=== PATIENT | female | born 1960 | race Caucasian/White ===

== ENCOUNTER 2017-05-12 23:23 | Inpatient (IN) | payer MEDICAID ==
[2017-05-12] MEDS ORDERED: Sodium Chloride 0.9% 10 ML Syringe FLUSH PRN (23:30)
[2017-05-12] MEDS ORDERED: Lactated Ringers 1,000 ML IV ONE (23:31)
--- NOTE | 2017-05-12 23:32 | EDM.PDOC ---
ED HPI GENERAL MEDICAL PROBLEM - General Chief Complaint: General Stated Complaint: pain, multiple complaints Time Seen by Provider: 05/12/17 23:25 Source of Information: Reports: Patient, RN, RN Notes Reviewed History Limitations: Reports: No Limitations - History of Present Illness INITIAL COMMENTS - FREE TEXT/NARRATIVE: Patient presents to the ED at [facility] with multiple complaints. Patient states she has generalized pain "all over my body" especially arms and legs. She states she feels very SOB and nauseated. She is a known cigarette smoker of 1 PPD. She states she does not eat very much. She has not vomited today. She was in to see a provider February 2017 for medication refill. She is a known non- compliant with her health maintenance. She states her chest has hurt on/off for the past week or so. She is not sure if this is related to her generalized pain. No abdominal or pelvic pain. No UTI symptoms. Patient states her mouth feels very dry. No focal neurological deficits. She has a history of depression and is suppose to be taking Zoloft. She usually takes HCTZ for her blood pressure. Onset: Unknown/Unsure Generalized Pain Score (Numeric/FACES): 8 - Related Data Allergies Allergy/AdvReac Type Severity Reaction Status Date / Time No Known Allergies Allergy Verified 05/12/17 23:26 Home Meds: Home Meds Aspirin 325 mg PO DAILY 05/12/17 [History] Hydrochlorothiazide 25 mg PO DAILY 05/12/17 [History] Ibuprofen 3 tab PO ASDIRECTED PRN 05/12/17 [History] Sertraline [Zoloft] 50 mg PO DAILY 05/12/17 [History] ED ROS GENERAL - Review of Systems Review Of Systems: See Below Constitutional: Reports: Weakness, Decreased Appetite, Weight Loss. Denies: Fever, Chills Respiratory: Reports: Shortness of Breath, Cough (chronic due to smoking) Cardiovascular: Denies: Chest Pain, Palpitations GI/Abdominal: Reports: Nausea. Denies: Abdominal Pain, Vomiting Skin: Reports: Dryness Neurological: Reports: Dizziness. Denies: Headache, Numbness, Paresthesia, Tingling ED EXAM, GENERAL - Physical Exam Exam: See Below Exam Limited By: No Limitations General Appearance: Alert, No Apparent Distress Eye Exam: Bilateral Eye: Normal Inspection, PERRL Respiratory/Chest: No Respiratory Distress, Lungs Clear, Decreased Breath Sounds Cardiovascular: Normal Peripheral Pulses, Regular Rate, Rhythm Peripheral Pulses: 2+: Radial (L), Radial (R) GI/Abdominal: Soft, Non-Tender, Abnormal Bowel Sounds (Hypoactive) Neurological: Alert, Oriented Psychiatric: Anxious, Other (dry mucous membranes; poor eye contact; very concerned about pain medications; obvious lip-smacking) Skin Exam: Dry, Intact EKG INTERPRETATION EKG Date: 05/13/17 Time: 00:00 Rhythm: NSR Rate (Beats/Min): 72 [place]: RAD-Right [place] Deviation P-Wave: Present QRS: Normal ST-T: Normal QT: Normal AL/PQ Interval: 0.15 Comparison: NA - No Prior EKG EKG Interpretation Comments: 1. Sinus Rhythm 2. Marked Right axis deviation Course - Vital Signs Last Recorded V/S: Last Vital Signs Temp 36.6 C 05/12/17 23:26 Pulse 114 H 05/12/17 23:26 Resp 20 05/12/17 23:26 BP 154/90 H 05/12/17 23:26 Pulse Ox 100 05/12/17 23:26 - Orders/Labs/Meds Orders: Active Orders 24 hr Category Date Time Status EKG 12 Lead [EKG Documentation Completion] [RC] STAT Care 05/12/17 23:29 Active Chest 2V [CR] Stat Exams 05/12/17 23:30 Taken DRUG SCREEN, URINE [URCHEM] Stat Lab 05/12/17 23:37 Ordered UA W/MICROSCOPIC [URIN] Stat Lab 05/12/17 23:37 Ordered Sodium Chloride 0.9% [Saline Flush] Med 05/12/17 23:30 Active 10 ml FLUSH ASDIRECTED PRN Peripheral IV Insertion Adult [OM.PC] Routine Oth 05/12/17 23:30 Ordered Medication Orders Sodium Chloride (Saline Flush) 10 ml FLUSH ASDIRECTED PRN PRN Reason: Keep Vein Open Labs: Laboratory Tests 05/12/17 05/12/17 Range/Units 23:54 23:54 WBC 7.4 (4.0-10.0) x10^3/uL RBC 5.18 (4.00-5.50) x10^6/uL Hgb 15.3 (12.0-16.0) g/dL Hct 44.6 (33.0-47.0) % MCV 86.1 (78.0-93.0) fL MCH 29.5 (26.0-32.0) pg MCHC 34.3 (32.0-36.0) g/dL RDW Coeff of Grace 13.4 (10.0-15.0) % Plt Count 236 (130-400) x10^3/uL Neut % (Auto) 70.9 (50.0-80.0) % Lymph % (Auto) 17.4 L (25.0-50.0) % [place] % (Auto) 9.9 (2.0-11.0) % Eos % (Auto) 1.5 (0.0-4.0) % Baso % (Auto) 0.3 (0.2-1.2) % Sodium 132 L (136-145) mmol/L Potassium 2.9 L* (3.5-5.1) mmol/L Chloride 96 L (98-107) mmol/L Carbon Dioxide 28 (21-32) mmol/L BUN 17 (7-18) mg/dL Creatinine 0.7 (0.55-1.02) mg/dL Est Cr Clr Drug Dosing 71.53 mL/min Estimated GFR (MDRD) > 60 Glucose 111 H (74-106) mg/dL Calcium 8.8 (8.5-10.1) mg/dL Corrected Calcium 9.52 (8.5-10.1) mg/dL Total Bilirubin 0.4 (0.2-1.0) mg/dL AST 418 H (15-37) U/L ALT 196 H (14-59) U/L Alkaline Phosphatase 121 H (46-116) U/L Creatine Kinase 8049 H* (26-192) U/L Troponin I < 0.017 (<=0.056) ng/mL Total Protein 7.4 (6.4-8.2) g/dL Albumin 3.1 L (3.4-5.0) g/dL Globulin 4.3 Albumin/Globulin Ratio 0.72 Ethyl Alcohol < 3 (0-3) mg/dL Meds: Medications Generic Name Dose Route Start Last Admin Trade Name Freq PRN Reason Stop Dose Admin Sodium Chloride 10 ml 05/12/17 23:30 Saline Flush FLUSH ASDIRECTED PRN Keep Vein Open Discontinued Medications Generic Name Dose Route Start Last Admin Trade Name Freq PRN Reason Stop Dose Admin Lactated Ringer's 1,000 mls @ 999 mls/hr 05/12/17 23:31 05/12/17 23:57 Ringers, Lactated IV 05/13/17 00:31 999 mls/hr ONETIME ONE Administration Ketorolac Tromethamine 30 mg 05/13/17 00:00 05/13/17 00:17 Toradol IVPUSH 05/13/17 00:01 30 mg ONETIME ONE Administration Lorazepam 1 mg 05/13/17 00:01 05/13/17 00:17 Ativan IVPUSH 05/13/17 00:02 1 mg ONETIME ONE Administration Ondansetron HCl 4 mg 05/13/17 00:00 05/13/17 00:15 Zofran IVPUSH 05/13/17 00:01 4 mg ONETIME ONE Administration - Radiology Interpretation Free Text/Narrative:: CXR: No acute findings - see scanned report in EMR Departure - Departure Time of Disposition: 00:53 Disposition: Refer to Observation Condition: Good Clinical Impression: Hypokalemia, Elevated liver enzymes Rhabdomyolysis Qualifiers: Rhabdomyolysis type: non-traumatic Qualified Code(s): M62.82 - Rhabdomyolysis - Discharge Information - Problem List Review Problem List Initiated/Reviewed/Updated: Yes - My Orders Last 24 Hours: My Active Orders 05/12/17 23:29 EKG 12 Lead [EKG Documentation Completion] [RC] STAT 05/12/17 23:30 Chest 2V [CR] Stat Sodium Chloride 0.9% [Saline Flush] 10 ml FLUSH ASDIRECTED PRN Peripheral IV Insertion Adult [OM.PC] Routine 05/12/17 23:37 DRUG SCREEN, URINE [URCHEM] Stat UA W/MICROSCOPIC [URIN] Stat - Assessment/Plan Admission H&P: Please use this note as an admission H&P Last 24 Hours: My Active Orders 05/12/17 23:29 EKG 12 Lead [EKG Documentation Completion] [RC] STAT 05/12/17 23:30 Chest 2V [CR] Stat Sodium Chloride 0.9% [Saline Flush] 10 ml FLUSH ASDIRECTED PRN Peripheral IV Insertion Adult [OM.PC] Routine 05/12/17 23:37 DRUG SCREEN, URINE [URCHEM] Stat UA W/MICROSCOPIC [URIN] Stat Assessment:: Rhabdomyolysis Hypokalemia Elevated Liver Enzymes Dehydration Plan: Testing discussed with patient. Will admit to obs for K replacement and further investigation of elevated liver enzymes and IVF hydration. Patient agrees with the POC and wishes to proceed.
[2017-05-13] MEDS ORDERED: Ketorolac 30 MG/ML SDV IVPUSH ONE
[2017-05-13] MEDS ORDERED: Ondansetron 4 MG/2 ML SDV IVPUSH ONE
[2017-05-13] MEDS ORDERED: LORazepam 2 MG/ML SDV IVPUSH ONE ×2 (00:01→21:00)
[2017-05-13 00:30] LABS: CHLORIDE,CL 96 mmol/L (98-107); SODIUM,NA 132 mmol/L (136-145)
[2017-05-13] MEDS ORDERED: Sodium Chloride 0.9% 1,000 ML IV SCH ×2 (01:16→02:30)
[2017-05-13] MEDS ORDERED: Potassium Chloride 20 MEQ in Premix Bag 1 BAG IV ONE ×2 (01:30→04:30)
[2017-05-13] MEDS ORDERED: Ondansetron 4 MG Tab.DIS PO PRN (01:30)
--- NOTE | 2017-05-13 01:37 | PCM.HP ---
H&P History of Present Illness - General Date of Service: 05/13/17 Admit Problem/Dx: Severe rhabdomyolysis Hypokalemia Weakness Elevated liver enzymes Source of Information: Patient, Family, Old Records, RN, RN Notes Reviewed History Limitations: Reports: No Limitations - History of Present Illness Initial Comments - Free Text/Narative: Patient presented earlier this evening to [facility] ER with multiple complaints. The patient had complained of a 2 week history of generalized body aches and muscle pains. The patient also complained of worsening shortness of breath. The patient states that she also felt really nauseated. The patient was not sure why her symptoms were happening. The patient did not have any focal neurological deficits. The patient is a cigarette smoker. The patient smokes one pack per day. The patient also has a strong alcohol abuse history. During the patient's ER course, she was given 1 L of fluid and IV Toradol, Zofran, and Ativan. The patient's CK level was > 8000. The patient also had a low potassium level of 2.9. The patient's liver enzymes were also elevated. The patient seemed to be somewhat anxious in the ER so she was given Ativan. The chest x-ray and EKG were normal. Symptom Onset Date: 04/29/17 Duration of Symptoms: Reports: Getting Worse, Waxing/Waning Location: Reports: Generalized Quality: Reports: Ache Severity: Moderate Improves with: Reports: None Worsens with: Reports: Movement Context: Denies: Sick Contact, Activity/Exercise, Lifting, Trauma Associated Symptoms: Reports: Nausea/Vomiting, Shortness of Breath Generalized Pain Score (Numeric/FACES): 8 - Related Data Allergies/Adverse Reactions: Allergies Allergy/AdvReac Type Severity Reaction Status Date / Time No Known Allergies Allergy Verified 05/12/17 23:26 Home Medications: Home Meds Aspirin 325 mg PO DAILY 05/12/17 [History] Hydrochlorothiazide 25 mg PO DAILY 05/12/17 [History] Ibuprofen 3 tab PO ASDIRECTED PRN 05/12/17 [History] Sertraline [Zoloft] 50 mg PO DAILY 05/12/17 [History] Past Medical History Cardiovascular History: Reports: Hypertension Psychiatric History: Reports: Depression Social & Family History - Tobacco Use Smoking Status *Q: Current Every Day Smoker Years of Tobacco use: 42 Packs/Tins Daily: 1 Used Tobacco, but Quit: No Second Hand Smoke Exposure: No - Caffeine Use Caffeine Use: Reports: Coffee, Energy Drinks, Soda - Recreational Drug Use Recreational Drug Use: No H&P Review of Systems - Review of Systems: Review Of Systems: See Below General: Reports: Weakness, Decreased Appetite, Weight Loss. Denies: Fever, Chills Pulmonary: Reports: Shortness of Breath, Cough (chronic) Cardiovascular: Reports: Lightheadedness. Denies: Chest Pain, Palpitations Gastrointestinal: Reports: Nausea. Denies: Abdominal Pain, Vomiting Musculoskeletal: Reports: Muscle Pain, Muscle Stiffness Skin: Reports: Dryness Neurological: Reports: Dizziness. Denies: Headache, Numbness, Paresthesia, Tingling Exam - Exam Exam: See Below - Vital Signs Vital Signs: Last Vital Signs Temp 36.2 C 05/13/17 01:02 Pulse 77 05/13/17 01:02 Resp 19 05/13/17 01:02 BP 125/73 05/13/17 01:02 Pulse Ox 96 05/13/17 01:02 Weight: 52.73 kg - Exam General: Alert, Oriented, Cooperative Lungs: Clear to Auscultation, Normal Respiratory Effort, Decreased Breath Sounds Cardiovascular: Regular Rate, Regular Rhythm, Normal S1, Normal S2 GI/Abdominal Exam: Soft, Non-Tender, Abnormal Bowel Sounds (Hypoactive) Extremities: Normal Inspection Peripheral Pulses: 2+: Radial (L), Radial (R) Skin: Warm, Dry, Intact Neuro Extensive - Mental Status: Alert, Oriented x3 - Patient Data Result Diagrams: 05/12/17 23:54 05/12/17 23:54 *Q Meaningful Use (ADM) - VTE *Q VTE Criteria *Q: VTE Mechanical Contraindications *Q: At Risk for Falls - Stroke *Q Stroke Criteria *Q: - AMI *Q AMI Criteria *Q: - Problem List (1) Rhabdomyolysis SNOMED Code(s): 013517569 ICD Code: M62.82 - RHABDOMYOLYSIS Status: Acute Priority: High Current Visit: Yes Onset Date: ~05/12/17 Qualifiers: Rhabdomyolysis type: non-traumatic Qualified Code(s): M62.82 - Rhabdomyolysis (2) Elevated liver enzymes SNOMED Code(s): 576082292 ICD Code: R74.8 - ABNORMAL LEVELS OF OTHER SERUM ENZYMES Status: Acute Priority: Medium Current Visit: Yes (3) Hypokalemia SNOMED Code(s): 10189419 ICD Code: E87.6 - HYPOKALEMIA Status: Acute Priority: Medium Current Visit: Yes (4) Dehydration SNOMED Code(s): 80471503 ICD Code: E86.0 - DEHYDRATION Status: Acute Priority: Medium Current Visit: Yes (5) Essential hypertension SNOMED Code(s): 71187502 ICD Code: I10 - ESSENTIAL (PRIMARY) HYPERTENSION Status: Chronic Priority : Medium Current Visit: No (6) Depression SNOMED Code(s): 78149014 ICD Code: F32.9 - MAJOR DEPRESSIVE DISORDER, SINGLE EPISODE, UNSPECIFIED Status: Chronic Current Visit: No Qualifiers: Depression Type: major depressive disorder Major depression recurrence: recurrent Active/Remission status: currently active Major depression episode severity: mild Qualified Code(s): F33.0 - Major depressive disorder, recurrent, mild Problem List Initiated/Reviewed/Updated: Yes Orders Last 24hrs: Active Orders 24 hr Category Date Time Status Patient Status [ADT] Routine ADT 05/13/17 01:30 Ordered Ambulate [RC] ASDIRECTED Care 05/13/17 01:30 Ordered Cardiac Monitoring [RC] CONTINUOUS Care 05/13/17 01:31 Ordered Height and Weight [RC] UPON Care 05/13/17 01:30 Ordered Intake and Output [RC] QSHIFT Care 05/13/17 01:31 Ordered May Shower [RC] ASDIRECTED Care 05/13/17 01:30 Ordered Oxygen Therapy [RC] PRN Care 05/13/17 01:30 Ordered VTE/DVT Education [RC] PER UNIT ROUTINE Care 05/13/17 01:30 Ordered Vital Signs [RC] Q4H Care 05/13/17 01:30 Ordered Consult to Case Management [CONS] Routine Cons 05/13/17 01:30 Ordered Heart Healthy Diet [DIET] Diet 05/13/17 Breakfast Ordered Abdomen Ltd [US] Routine Exams 05/13/17 10:00 Ordered BILIRUBIN DIRECT [CHEM] Routine Lab 05/13/17 05:11 Ordered C-REACTIVE PROTEIN [CHEM] Routine Lab 05/13/17 05:11 Ordered CBC WITH AUTO DIFF [HEME] Routine Lab 05/13/17 05:11 Ordered COMPREHENSIVE METABOLIC PN,CMP [CHEM] Routine Lab 05/13/17 05:11 Ordered CREATINE KINASE,CK [CHEM] Routine Lab 05/13/17 05:11 Ordered GGT [REF] Routine Lab 05/13/17 05:11 Ordered HEPATITIS PANEL, ACUTE [REF] Routine Lab 05/13/17 05:11 Ordered INR,PT,PROTHROMBIN TIME [COAG] Routine Lab 05/13/17 05:11 Ordered LACTATE DEHYDROGENASE,LDH [CHEM] Routine Lab 05/13/17 05:11 Ordered MAGNESIUM [CHEM] Routine Lab 05/13/17 05:11 Ordered MYOGLOBIN,URN Routine Lab 05/13/17 05:11 Ordered SEDIMENTATION RATE AUTO [HEME] Routine Lab 05/13/17 05:11 Ordered URIC ACID [CHEM] Routine Lab 05/13/17 05:11 Ordered Acetaminophen [Tylenol] Med 05/13/17 01:30 Ordered 650 mg PO Q4H PRN Nicotine [Habitrol] Med 05/13/17 01:30 Ordered 21 mg TRDERM DAILY Ondansetron [Zofran ODT] Med 05/13/17 01:30 Ordered 4 mg PO Q6H PRN Potassium Chloride [KCL 20 MEQ in Water 50 ML] 20 meq Med 05/13/17 01:16 Ordered Premix Bag 1 bag IV ONETIME Potassium Chloride [KCL 20 MEQ in Water 50 ML] 20 meq Med 05/13/17 01:17 Ordered Premix Bag 1 bag IV ONETIME Sodium Chloride 0.9% [Normal Saline] 1,000 ml Med 05/13/17 02:30 Active IV Q1H Resuscitation Status Routine Resus Stat 05/13/17 01:30 Ordered Medication Orders Acetaminophen (Tylenol) 650 mg PO Q4H PRN PRN Reason: Pain (Mild 1-3)/fever Potassium Chloride 20 meq/ (Premix) 50 mls @ 50 mls/hr IV ONETIME ONE Stop: 05/13/17 02:29 Potassium Chloride 20 meq/ (Premix) 50 mls @ 50 mls/hr IV ONETIME ONE Stop: 05/13/17 05:29 Sodium Chloride (Normal Saline) 1,000 mls @ 999 mls/hr IV Q1H RONY Stop: 05/13/17 04:29 Nicotine (Habitrol) 21 mg TRDERM DAILY RONY Ondansetron HCl (Zofran Odt) 4 mg PO Q6H PRN PRN Reason: nausea, able to take PO Sodium Chloride (Saline Flush) 10 ml FLUSH ASDIRECTED PRN PRN Reason: Keep Vein Open Assessment/Plan Comment:: 56-year-old female patient with a past medical history of depression and hypertension is admitted to the observation unit at [facility] with a diagnosis of rhabdomyolysis, elevated liver enzymes, dehydration, and hypokalemia. The patient will be given 2 L of normal saline bolus for the elevated CK, rhabdo. I will replace the patient's potassium with IV KCl. The patient's liver enzymes may be elevated due to the patient's rhabdo, however given her alcohol history and poor nutrition and cigarette smoking I will obtain an ultrasound of the liver to rule out any mass/neoplasm etiology. We will also recheck blood work to rule out hepatitis and other etiologies. Case management to see the patient for financial concerns as she is uninsured. The patient wishes to be a full code. The patient wishes to be transferred to a high -level care should the need arise. DVT prophylaxis is early ambulation. I do anticipate the patient to be admitted less than 48 hours. We will recheck blood work in the morning. The CK is still elevated we'll continue with IV fluid hydration until normalized.
[2017-05-13] MEDS: Sodium Chloride 0.9% 1,000 ML IV SCH ×2 (01:56→03:14)
[2017-05-13] MEDS: Nicotine 21 MG/24 Hr Patch TRDERM SCH ×2 (02:53→08:00)
[2017-05-13] MEDS: Sodium Chloride 0.9% with KCl 1,000 ML IV SCH ×2 (06:53→17:19)
[2017-05-13 07:36] LABS: CHLORIDE,CL 105 mmol/L (98-107); SODIUM,NA 137 mmol/L (136-145)
[2017-05-13] MEDS: Acetaminophen 325 MG Tab PO PRN ×3 (07:59→17:19)
[2017-05-13] MEDS: SERTRALINE 50 MG PO SCH ×3 (07:59→20:16)
[2017-05-13] MEDS: Aspirin 325 MG Tab.EC PO SCH (09:46)
[2017-05-13] MEDS ORDERED: Magnesium Sulfate/Water 2 GM in Premix Bag 1 BAG IV ONE (15:55)
--- NOTE | 2017-05-13 21:10 | PCM.PN ---
- General Info Date of Service: 05/13/17 Admission Dx/Problem (Free Text): Severe rhabdomyolysis Hypokalemia Weakness Elevated liver enzymes Subjective Update: Patient states she continues having generalized myalgias. She is ambulating ok. No new focal problems today. Overall, she is feeling better. No chest pain. No SOB. She states he symptoms are improving from yesterday. Functional Status: Reports: Tolerating Diet, Ambulating, Urinating - Review of Systems General: Reports: Weakness, Fatigue. Denies: Fever Pulmonary: Denies: Shortness of Breath, Cough Cardiovascular: Denies: Chest Pain, Palpitations Gastrointestinal: Denies: Abdominal Pain, Nausea, Vomiting Musculoskeletal: Reports: Other (generalized muscle aches) Skin: Reports: No Symptoms Neurological: Reports: No Symptoms - Patient Data Vitals - Most Recent: Last Vital Signs Temp 36.8 C 05/13/17 16:55 Pulse 81 05/13/17 16:55 Resp 20 05/13/17 16:55 BP 130/72 05/13/17 16:55 Pulse Ox 98 05/13/17 16:55 Weight - Most Recent: 52.73 kg I&O - Last 24 Hours: Intake & Output 05/13/17 05/13/17 05/13/17 06:59 14:59 22:59 Intake Total 3837 120 1155 Output Total 450 600 200 Balance 3387 -480 955 Lab Results Last 24 Hours: Laboratory Results - last 24 hr 05/13/17 05/13/17 05/13/17 Range/Units 06:30 06:30 06:40 WBC 5.2 (4.0-10.0) x10^3/uL RBC 4.28 (4.00-5.50) x10^6/uL Hgb 12.4 D (12.0-16.0) g/dL Hct 37.5 (33.0-47.0) % MCV 87.6 (78.0-93.0) fL MCH 29.0 (26.0-32.0) pg MCHC 33.1 (32.0-36.0) g/dL RDW Coeff of Grace 13.5 (10.0-15.0) % Plt Count 216 (130-400) x10^3/uL Neut % (Auto) 75.7 (50.0-80.0) % Lymph % (Auto) 16.5 L (25.0-50.0) % [place] % (Auto) 6.3 (2.0-11.0) % Eos % (Auto) 1.3 (0.0-4.0) % Baso % (Auto) 0.2 (0.2-1.2) % ESR 23 H (0-21) mm/hr PT (9.8-11.8) SEC INR (2.0-3.5) Sodium (136-145) mmol/L Potassium (3.5-5.1) mmol/L Chloride (98-107) mmol/L Carbon Dioxide (21-32) mmol/L BUN (7-18) mg/dL Creatinine (0.55-1.02) mg/dL Est Cr Clr Drug Dosing mL/min Estimated GFR (MDRD) Glucose (74-106) mg/dL Uric Acid (2.6-6.0) mg/dL Calcium (8.5-10.1) mg/dL Corrected Calcium (8.5-10.1) mg/dL Magnesium (1.8-2.4) mg/dL Total Bilirubin (0.2-1.0) mg/dL Direct Bilirubin (0.00-0.20) mg/dL AST (15-37) U/L ALT (14-59) U/L Alkaline Phosphatase (46-116) U/L Lactate Dehydrogenase (81-234) U/L Creatine Kinase (26-192) U/L C-Reactive Protein (<=0.9) mg/dL Total Protein (6.4-8.2) g/dL Albumin (3.4-5.0) g/dL Globulin Albumin/Globulin Ratio Urine Color Yellow (YELLOW) Urine Appearance Clear (CLEAR) Urine pH 7.0 (5.0-8.0) Ur Specific [place] 1.015 Urine Protein Negative (NEGATIVE) mg/dL Urine Glucose (UA) Negative (NEGATIVE) mg/dL Urine Ketones Negative (NEGATIVE) mg/dL Urine Occult Blood Negative (NEGATIVE) Urine Nitrite Negative (NEGATIVE) Urine Bilirubin Negative (NEGATIVE) Urine Urobilinogen 0.2 (0.2) EU/dL Ur Leukocyte Esterase Trace H (NEGATIVE) Urine RBC 0-5 (NOT SEEN) /HPF Urine WBC 0-5 (NOT SEEN) /HPF Ur Squamous Epith Cells Rare (NEGATIVE) /HPF Ur Renal Epithelial Cell Rare H (NEGATIVE) /HPF Urine Bacteria Not seen (NEGATIVE) /HPF Urine Mucus Rare H (NEGATIVE) /LPF Urine Opiates Screen Negative (NEGATIVE) Ur Buprenorphine Scrn Negative (NEGATIVE) Ur Oxycodone Screen Negative (NEGATIVE) Urine Methadone Screen Negative (NEGATIVE) Ur Barbiturates Screen Negative (NEGATIVE) Ur Tricyclics Screen Positive H (NEGATIVE) Ur Amphetamine Screen Negative (NEGATIVE) U Methamphetamines Scrn Negative (NEGATIVE) Urine MDMA Screen Negative (NEGATIVE) U Benzodiazepines Scrn Negative (NEGATIVE) U Cocaine Metab Screen Negative (NEGATIVE) U Marijuana (THC) Screen Negative (NEGATIVE) 05/13/17 05/13/17 Range/Units 06:40 06:40 WBC (4.0-10.0) x10^3/uL RBC (4.00-5.50) x10^6/uL Hgb (12.0-16.0) g/dL Hct (33.0-47.0) % MCV (78.0-93.0) fL MCH (26.0-32.0) pg MCHC (32.0-36.0) g/dL RDW Coeff of Grace (10.0-15.0) % Plt Count (130-400) x10^3/uL Neut % (Auto) (50.0-80.0) % Lymph % (Auto) (25.0-50.0) % [place] % (Auto) (2.0-11.0) % Eos % (Auto) (0.0-4.0) % Baso % (Auto) (0.2-1.2) % ESR (0-21) mm/hr PT 10.5 (9.8-11.8) SEC INR 1.0 L (2.0-3.5) Sodium 137 (136-145) mmol/L Potassium 3.4 L (3.5-5.1) mmol/L Chloride 105 (98-107) mmol/L Carbon Dioxide 27 (21-32) mmol/L BUN 15 (7-18) mg/dL Creatinine 0.5 L (0.55-1.02) mg/dL Est Cr Clr Drug Dosing 105.83 mL/min Estimated GFR (MDRD) > 60 Glucose 113 H (74-106) mg/dL Uric Acid 2.4 L (2.6-6.0) mg/dL Calcium 7.7 L (8.5-10.1) mg/dL Corrected Calcium 9.06 (8.5-10.1) mg/dL Magnesium 1.5 L (1.8-2.4) mg/dL Total Bilirubin 0.3 (0.2-1.0) mg/dL Direct Bilirubin 0.06 (0.00-0.20) mg/dL AST 285 H (15-37) U/L ALT 139 H (14-59) U/L Alkaline Phosphatase 93 (46-116) U/L Lactate Dehydrogenase 460 H (81-234) U/L Creatine Kinase 5252 H* (26-192) U/L C-Reactive Protein 0.3 (<=0.9) mg/dL Total Protein 5.4 L (6.4-8.2) g/dL Albumin 2.3 L (3.4-5.0) g/dL Globulin 3.1 Albumin/Globulin Ratio 0.74 Urine Color (YELLOW) Urine Appearance (CLEAR) Urine pH (5.0-8.0) Ur Specific [place] Urine Protein (NEGATIVE) mg/dL Urine Glucose (UA) (NEGATIVE) mg/dL Urine Ketones (NEGATIVE) mg/dL Urine Occult Blood (NEGATIVE) Urine Nitrite (NEGATIVE) Urine Bilirubin (NEGATIVE) Urine Urobilinogen (0.2) EU/dL Ur Leukocyte Esterase (NEGATIVE) Urine RBC (NOT SEEN) /HPF Urine WBC (NOT SEEN) /HPF Ur Squamous Epith Cells (NEGATIVE) /HPF Ur Renal Epithelial Cell (NEGATIVE) /HPF Urine Bacteria (NEGATIVE) /HPF Urine Mucus (NEGATIVE) /LPF Urine Opiates Screen (NEGATIVE) Ur Buprenorphine Scrn (NEGATIVE) Ur Oxycodone Screen (NEGATIVE) Urine Methadone Screen (NEGATIVE) Ur Barbiturates Screen (NEGATIVE) Ur Tricyclics Screen (NEGATIVE) Ur Amphetamine Screen (NEGATIVE) U Methamphetamines Scrn (NEGATIVE) Urine MDMA Screen (NEGATIVE) U Benzodiazepines Scrn (NEGATIVE) U Cocaine Metab Screen (NEGATIVE) U Marijuana (THC) Screen (NEGATIVE) Med Orders - Current: Current Medications Acetaminophen (Tylenol) 650 mg PO Q4H PRN PRN Reason: Pain (Mild 1-3)/fever Last Admin: 05/13/17 17:19 Dose: 650 mg Aspirin (Ecotrin) 325 mg PO DAILY RONY Last Admin: 05/13/17 09:46 Dose: 325 mg Potassium Chloride/Sodium Chloride (Normal Saline With 40 Meq Kcl) 1,000 mls @ 100 mls/hr IV ASDIRECTED [facility] Last Admin: 05/13/17 17:19 Dose: 100 mls/hr Nicotine (Habitrol) 21 mg TRDERM DAILY [facility] Last Admin: 05/13/17 08:00 Dose: 21 mg Sertraline [Zoloft] (50 MgPt Own) 50 mg PO BEDTIME [facility] Last Admin: 05/13/17 20:16 Dose: 50 mg Ondansetron HCl (Zofran Odt) 4 mg PO Q6H PRN PRN Reason: nausea, able to take PO Sodium Chloride (Saline Flush) 10 ml FLUSH ASDIRECTED PRN PRN Reason: Keep Vein Open Discontinued Medications Lactated Ringer's (Ringers, Lactated) 1,000 mls @ 999 mls/hr IV ONETIME ONE Stop: 05/13/17 00:31 Last Admin: 05/12/17 23:57 Dose: 999 mls/hr Sodium Chloride (Normal Saline) 1,000 mls @ 999 mls/hr IV Q1H [facility] Stop: 05/13/17 03:15 Last Admin: 05/13/17 04:15 Dose: Not Given Potassium Chloride 20 meq/ (Premix) 50 mls @ 50 mls/hr IV ONETIME ONE Stop: 05/13/17 02:29 Last Admin: 05/13/17 01:57 Dose: 50 mls/hr Potassium Chloride 20 meq/ (Premix) 50 mls @ 50 mls/hr IV ONETIME ONE Stop: 05/13/17 05:29 Last Admin: 05/13/17 04:28 Dose: 50 mls/hr Sodium Chloride (Normal Saline) 1,000 mls @ 999 mls/hr IV Q1H [facility] Stop: 05/13/17 04:29 Sodium Chloride (Normal Saline) 1,000 mls @ 999 mls/hr IV Q1H [facility] Stop: 05/13/17 03:29 Last Admin: 05/13/17 03:14 Dose: 999 mls/hr Magnesium Sulfate 2 gm/ Premix 50 mls @ 25 mls/hr IV ONETIME ONE Stop: 05/13/17 17:54 Last Admin: 05/13/17 17:14 Dose: 25 mls/hr Ketorolac Tromethamine (Toradol) 30 mg IVPUSH ONETIME ONE Stop: 05/13/17 00:01 Last Admin: 05/13/17 00:17 Dose: 30 mg Lorazepam (Ativan) 1 mg IVPUSH ONETIME ONE Stop: 05/13/17 00:02 Last Admin: 05/13/17 00:17 Dose: 1 mg Lorazepam (Ativan) 1 mg IVPUSH ONETIME ONE Stop: 05/13/17 21:01 Last Admin: 05/13/17 20:17 Dose: 1 mg Sertraline [Zoloft] (50 MgPt Own) 50 mg PO DAILY [facility]ON[facility] Last Admin: 05/13/17 09:44 Dose: Not Given Ondansetron HCl (Zofran) 4 mg IVPUSH ONETIME ONE Stop: 05/13/17 00:01 Last Admin: 05/13/17 00:15 Dose: 4 mg - Exam General: Alert, Oriented, Cooperative, No Acute Distress Lungs: Clear to Auscultation, Normal Respiratory Effort, Decreased Breath Sounds Cardiovascular: Regular Rate, Regular Rhythm, No Murmurs GI/Abdominal Exam: Normal Bowel Sounds, Soft, Non-Tender Back Exam: Normal Inspection Extremities: Normal Inspection. No: Joint Swelling Peripheral Pulses: 2+: Radial (L), Radial (R) Skin: Warm, Dry, Intact Neurological: No New Focal Deficit - Problem List & Annotations (1) Rhabdomyolysis SNOMED Code(s): 206034537 Code(s): M62.82 - RHABDOMYOLYSIS Status: Acute Priority: High Current Visit: Yes Onset Date: ~05/12/17 Qualifiers: Rhabdomyolysis type: non-traumatic Qualified Code(s): M62.82 - Rhabdomyolysis (2) Elevated liver enzymes SNOMED Code(s): 349008561 Code(s): R74.8 - ABNORMAL LEVELS OF OTHER SERUM ENZYMES Status: Acute Priority: Medium Current Visit: Yes (3) Hypokalemia SNOMED Code(s): 20911009 Code(s): E87.6 - HYPOKALEMIA Status: Resolved Priority: Medium Current Visit: Yes (4) Dehydration SNOMED Code(s): 99074910 Code(s): E86.0 - DEHYDRATION Status: Acute Priority: Medium Current Visit: Yes (5) Essential hypertension SNOMED Code(s): 65772865 Code(s): I10 - ESSENTIAL (PRIMARY) HYPERTENSION Status: Chronic Priority : Medium Current Visit: No (6) Depression SNOMED Code(s): 79981964 Code(s): F32.9 - MAJOR DEPRESSIVE DISORDER, SINGLE EPISODE, UNSPECIFIED Status: Chronic Current Visit: No Qualifiers: Depression Type: major depressive disorder Major depression recurrence: recurrent Active/Remission status: currently active Major depression episode severity: mild Qualified Code(s): F33.0 - Major depressive disorder, recurrent, mild - Problem List Review Problem List Initiated/Reviewed/Updated: Yes - My Orders Last 24 Hours: My Active Orders 05/13/17 01:30 Patient Status [ADT] Routine Ambulate [RC] ASDIRECTED Height and Weight [RC] UPON June Shower [RC] ASDIRECTED Oxygen Therapy [RC] PRN VTE/DVT Education [RC] .PRN Vital Signs [RC] ,,,,, Consult to Case Management [CONS] Routine Acetaminophen [Tylenol] 650 mg PO Q4H PRN Nicotine [Habitrol] 21 mg TRDERM DAILY Ondansetron [Zofran ODT] 4 mg PO Q6H PRN Resuscitation Status Routine 05/13/17 01:31 Cardiac Monitoring [RC] 06,,,18,,02 Intake and Output [RC] 05/13/17 06:30 MYOGLOBIN,URN Routine Sodium Chloride 0.9% with KCl [Normal Saline with 40 mEq KCl] 1,000 ml IV ASDIRECTED 05/13/17 06:40 GGT [REF] Routine HEPATITIS PANEL, ACUTE [REF] Routine 05/13/17 09:30 Aspirin [Ecotrin] 325 mg PO DAILY 05/13/17 10:00 Abdomen Ltd [US] Routine 05/13/17 20:00 Sertraline [Zoloft] 50 mg PO BEDTIME 05/13/17 Breakfast Heart Healthy Diet [DIET] 05/14/17 05:11 COMPREHENSIVE METABOLIC PN,CMP [CHEM] Routine CREATINE KINASE,CK [CHEM] Routine MAGNESIUM [CHEM] Routine - Assessment Assessment:: Rhabdo - improving Hypokalemia - resolved Elevated liver enzymes - improving Dehydration - improving - Plan Plan:: 56-year-old female patient with a past medical history of depression and hypertension is admitted to the observation unit at [facility] with a diagnosis of rhabdomyolysis, elevated liver enzymes, dehydration, and hypokalemia. The patient will be given 2 L of normal saline bolus for the elevated CK, rhabdo yesterday. Will continue with KCL in IVF for now. The patient's liver enzymes may be elevated due to the patient's rhabdo, however given her alcohol history and poor nutrition and cigarette smoking will obtain an ultrasound today of the liver to rule out any mass/neoplasm etiology. We will also recheck blood work to rule out hepatitis and other etiologies. Case management to see the patient for financial concerns as she is uninsured. DVT prophylaxis early ambulation. Patient may need acute cares if blood work continues to be elevated. We will recheck blood work in the morning. The CK is still elevated we'll continue with IV fluid hydration until normalized.
[2017-05-14] MEDS: Sodium Chloride 0.9% with KCl 1,000 ML IV SCH (03:09)
[2017-05-14 07:30] LABS: CHLORIDE,CL 108 mmol/L (98-107); SODIUM,NA 138 mmol/L (136-145)
[2017-05-14] MEDS: Nicotine 21 MG/24 Hr Patch TRDERM SCH (07:47)
[2017-05-14] MEDS: Acetaminophen 325 MG Tab PO PRN (07:47)
[2017-05-14] MEDS: Aspirin 325 MG Tab.EC PO SCH (07:48)
[2017-05-14] MEDS: Lactated Ringers 1,000 ML IV SCH ×2 (08:42→09:52)
[2017-05-14] MEDS ORDERED: Ketorolac 30 MG/ML SDV IVPUSH ONE (09:00)
--- NOTE | 2017-05-14 12:28 | PCM.PN ---
- General Info Date of Service: 05/14/17 Admission Dx/Problem (Free Text): Severe rhabdomyolysis - improving Hypokalemia - resolved Weakness - stable Elevated liver enzymes - improving Subjective Update: Patient states she continues having generalized myalgias. Yesterday seemed to be a better day, but today she feels her myalgias are worse. She has not been ambulating lately due to muscle soreness and feeling weak. No chest pain or shortness of breath. Tolerating diet ok. No issues wit urination. Denies any headache or dizziness. No abdominal pain. Had nausea earlier today. Functional Status: Reports: Tolerating Diet, Urinating. Denies: Ambulating Pain Score: 4 - Review of Systems General: Reports: Weakness, Fatigue. Denies: Fever, Chills Pulmonary: Denies: Shortness of Breath, Cough Cardiovascular: Denies: Chest Pain, Palpitations Gastrointestinal: Reports: Nausea. Denies: Abdominal Pain, Vomiting Musculoskeletal: Reports: Joint Pain, Other (Generalized muscle pain and weakness) Skin: Reports: No Symptoms Neurological: Reports: No Symptoms. Denies: Dizziness, Headache, Numbness, Paresthesia, Tingling - Patient Data Vitals - Most Recent: Last Vital Signs Temp 36.8 C 05/14/17 10:00 Pulse 89 05/14/17 10:00 Resp 20 05/14/17 10:00 BP 136/83 05/14/17 10:00 Pulse Ox 96 05/14/17 10:00 Weight - Most Recent: 74.389 kg I&O - Last 24 Hours: Intake & Output 05/13/17 05/14/17 05/14/17 22:59 06:59 14:59 Intake Total 1775 1680 770 Output Total 200 1800 1100 Balance 1575 -120 -330 Lab Results Last 24 Hours: Laboratory Results - last 24 hr 05/13/17 05/14/17 05/14/17 Range/Units 06:40 06:39 06:39 Sodium 138 (136-145) mmol/L Potassium 4.6 (3.5-5.1) mmol/L Chloride 108 H (98-107) mmol/L Carbon Dioxide 25 (21-32) mmol/L BUN 9 (7-18) mg/dL Creatinine 0.4 L (0.55-1.02) mg/dL Est Cr Clr Drug Dosing 142.99 mL/min Estimated GFR (MDRD) > 60 Glucose 93 (74-106) mg/dL Calcium 7.7 L (8.5-10.1) mg/dL Corrected Calcium 9.14 (8.5-10.1) mg/dL Magnesium 1.8 (1.8-2.4) mg/dL Total Bilirubin 0.4 (0.2-1.0) mg/dL GGT 19 (9-64) U/L AST 232 H (15-37) U/L ALT 122 H (14-59) U/L Alkaline Phosphatase 92 (46-116) U/L Creatine Kinase 3709 H* (26-192) U/L Total Protein 5.3 L (6.4-8.2) g/dL Albumin 2.2 L (3.4-5.0) g/dL Globulin 3.1 Albumin/Globulin Ratio 0.71 TSH, Ultra Sensitive 1.441 (0.358-3.74) uIU/mL Chidi Results Last 24 Hours: Microbiology 05/14/17 10:49 Influenza Type A Antigen Screen - Final Nasopharyngeal Swab NEGATIVE INFLUENZA A VIRUS AG Influenza Type B Antigen Screen - Final NEGATIVE INFLUENZA B VIRUS AG Med Orders - Current: Current Medications Acetaminophen (Tylenol) 650 mg PO Q4H PRN PRN Reason: Pain (Mild 1-3)/fever Last Admin: 05/14/17 07:47 Dose: 650 mg Aspirin (Ecotrin) 325 mg PO DAILY [facility] Last Admin: 05/14/17 07:48 Dose: 325 mg Nicotine (Habitrol) 21 mg TRDERM DAILY [facility] Last Admin: 05/14/17 07:47 Dose: 21 mg Sertraline [Zoloft] (50 MgPt Own) 50 mg PO BEDTIME [facility] Last Admin: 05/13/17 20:16 Dose: 50 mg Ondansetron HCl (Zofran Odt) 4 mg PO Q6H PRN PRN Reason: nausea, able to take PO Last Admin: 05/14/17 07:51 Dose: 4 mg Sodium Chloride (Saline Flush) 10 ml FLUSH ASDIRECTED PRN PRN Reason: Keep Vein Open Discontinued Medications Lactated Ringer's (Ringers, Lactated) 1,000 mls @ 999 mls/hr IV ONETIME ONE Stop: 05/13/17 00:31 Last Admin: 05/12/17 23:57 Dose: 999 mls/hr Sodium Chloride (Normal Saline) 1,000 mls @ 999 mls/hr IV Q1H [facility] Stop: 05/13/17 03:15 Last Admin: 05/13/17 04:15 Dose: Not Given Potassium Chloride 20 meq/ (Premix) 50 mls @ 50 mls/hr IV ONETIME ONE Stop: 05/13/17 02:29 Last Admin: 05/13/17 01:57 Dose: 50 mls/hr Potassium Chloride 20 meq/ (Premix) 50 mls @ 50 mls/hr IV ONETIME ONE Stop: 05/13/17 05:29 Last Admin: 05/13/17 04:28 Dose: 50 mls/hr Sodium Chloride (Normal Saline) 1,000 mls @ 999 mls/hr IV Q1H [facility] Stop: 05/13/17 04:29 Sodium Chloride (Normal Saline) 1,000 mls @ 999 mls/hr IV Q1H [facility] Stop: 05/13/17 03:29 Last Admin: 05/13/17 03:14 Dose: 999 mls/hr Potassium Chloride/Sodium Chloride (Normal Saline With 40 Meq Kcl) 1,000 mls @ 100 mls/hr IV ASDIRECTED [facility] Last Admin: 05/14/17 03:09 Dose: 100 mls/hr Magnesium Sulfate 2 gm/ Premix 50 mls @ 25 mls/hr IV ONETIME ONE Stop: 05/13/17 17:54 Last Admin: 05/13/17 17:14 Dose: 25 mls/hr Lactated Ringer's (Ringers, Lactated) 1,000 mls @ 1,000 mls/hr IV Q1H [facility] Stop: 05/14/17 10:18 Last Admin: 05/14/17 09:52 Dose: 1,000 mls/hr Ketorolac Tromethamine (Toradol) 30 mg IVPUSH ONETIME ONE Stop: 05/13/17 00:01 Last Admin: 05/13/17 00:17 Dose: 30 mg Ketorolac Tromethamine (Toradol) 30 mg IVPUSH ONETIME ONE Stop: 05/14/17 09:01 Last Admin: 05/14/17 09:52 Dose: 30 mg Lorazepam (Ativan) 1 mg IVPUSH ONETIME ONE Stop: 05/13/17 00:02 Last Admin: 05/13/17 00:17 Dose: 1 mg Lorazepam (Ativan) 1 mg IVPUSH ONETIME ONE Stop: 05/13/17 21:01 Last Admin: 05/13/17 20:17 Dose: 1 mg Sertraline [Zoloft] (50 MgPt Own) 50 mg PO DAILY [facility] Last Admin: 05/13/17 09:44 Dose: Not Given Ondansetron HCl (Zofran) 4 mg IVPUSH ONETIME ONE Stop: 05/13/17 00:01 Last Admin: 05/13/17 00:15 Dose: 4 mg - Exam Quality Assessment: DVT Prophylaxis (Early ambulation, no risk factors identified for development of DVT). No: Skin Breakdown General: Alert, Oriented, Cooperative, No Acute Distress Lungs: Clear to Auscultation, Normal Respiratory Effort Cardiovascular: Regular Rate, Regular Rhythm, No Murmurs GI/Abdominal Exam: Normal Bowel Sounds, Soft, Non-Tender Extremities: Normal Inspection, No Pedal Edema, Normal Capillary Refill, Other ( some mild muscle tenderness throughout). No: Joint Swelling, Increased Warmth Peripheral Pulses: 2+: Radial (L), Radial (R) Skin: Warm, Dry, Intact Neurological: No New Focal Deficit - Problem List & Annotations (1) Rhabdomyolysis SNOMED Code(s): 147346319 Code(s): M62.82 - RHABDOMYOLYSIS Status: Acute Priority: High Current Visit: Yes Onset Date: ~05/12/17 Qualifiers: Rhabdomyolysis type: non-traumatic Qualified Code(s): M62.82 - Rhabdomyolysis (2) Myalgia SNOMED Code(s): 73811628 Code(s): M79.1 - MYALGIA Status: Acute Priority: Medium Current Visit: Yes Onset Date: ~05/12/17 (3) Elevated liver enzymes SNOMED Code(s): 965934994 Code(s): R74.8 - ABNORMAL LEVELS OF OTHER SERUM ENZYMES Status: Acute Priority: Medium Current Visit: Yes (4) Dehydration SNOMED Code(s): 58155938 Code(s): E86.0 - DEHYDRATION Status: Acute Priority: Medium Current Visit: Yes (5) Essential hypertension SNOMED Code(s): 12088830 Code(s): I10 - ESSENTIAL (PRIMARY) HYPERTENSION Status: Chronic Priority : Medium Current Visit: No (6) Depression SNOMED Code(s): 80449451 Code(s): F32.9 - MAJOR DEPRESSIVE DISORDER, SINGLE EPISODE, UNSPECIFIED Status: Chronic Current Visit: No Qualifiers: Depression Type: major depressive disorder Major depression recurrence: recurrent Active/Remission status: currently active Major depression episode severity: mild Qualified Code(s): F33.0 - Major depressive disorder, recurrent, mild - Problem List Review Problem List Initiated/Reviewed/Updated: Yes - My Orders Last 24 Hours: My Active Orders 05/13/17 20:00 Sertraline [Zoloft] 50 mg PO BEDTIME 05/14/17 11:38 MALENA SCREEN RFLX [REF] Routine 05/14/17 12:19 Admission Status [Patient Status] [ADT] Routine 05/14/17 12:20 Consult to Physician [CONS] Routine - Assessment Assessment:: Rhabdomyolysis - improving Hypokalemia - resolved Elevated liver enzymes - improving Dehydration - improving Weakness - stable Myalgias - stable Hypertension - stable Depression - stable - Plan Plan:: Hospital day #2 for a 56-year-old female patient with a past medical history of depression and hypertension is admitted to the observation unit at [facility] with a diagnosis of rhabdomyolysis, elevated liver enzymes, dehydration , and hypokalemia. Case was discussed again today with Dr. Jennifer Ro, Internal Medicine [facility]. It was originally felt patient would recover well on observation status given her relatively benign health history, stable vital signs, no fevers, no recent infections or trauma, no recent drug/alcohol abuse, and general healthy lifestyle. Patient has been progressing slowly with CPK's trending down, electrolytes and liver enzymes normalizing, and kidney function remaining normal. Etiology of the patient's Rhabdomyolysis is still unclear at this time as suspected etiologies were normal/unremarkable, therefore further investigation is warranted, given the slow progression and patient's current complaints. 1. Rhabdomyolysis - -give an additional 2L of LR today, then LR at 125cc/hr -check MALENA panel to r/o autoimmune pathology; check TSH; check Influenza A & B -may consider a muscle biopsy once Rhabdo has completed resolved, taking a sample during acute phase is uninformative as it will only show evidence of cell and may appear normal; delaying the sample is recommended weeks to months after resolution of Rhabdo -Acute liver injury shows liver enzymes improving, GGT normal; uric acid is low; LDH elevated as expected, should improve with hydration as disease progression improves -Sed Rate mildly elevated, suspect improvement as CPK normalizes but not overly concerned with this due to concurrent normal CRP -Albumin low, continue to monitor -urine myoglobin pending, however this is a late phase indicator since kidney function has remained normal; no hemolysis suspected in serum -may consider checking Aldolase, CA Type 3, and FABP if CPK does not improved over the next few days as these tests are late phase indicators of disease and are mainly used in chronic muscle disease states; Troponin level normal on admit -NaHCO3 not indicated in IVF's as urine pH is normal and Calcium/Potassium levels are normal 2. Elevated Liver Enzymes- -improving, suspect normalization once CPK levels improve -await Hepatitis Panel results -continue to monitor 3. Dehydration- -much improved -continue PO fluids -monitor I & O 4. Hypokalemia -resolved -continue to monitor per lab work 5. Myalgias -encourage ambulation -may consider PT referral for rehab -recommendation is to avoid use of narcotics given history of substance abuse /addiction -recommendation is to continue with PRN Toradol (kidney function normal, age <65, weight >110) -continue with IVF as this should help flush CPK out of muscle -OK to continue with Tylenol despite elevated liver enzymes (acute vs chronic disease states) -no evidence of myositis on assessment 6. Hypertension -continue to hold HCTZ as blood pressure have been stable 7. Depression -continue with Zoloft -monitor for any worsening/new symptoms Patient will be changed to Acute status today as patient will need a couple more days of IVF hydration. Dr. Michelle Giles to assume care of this patient. Patient signed out to Dr. Michelle Giles at 11:02 on 05/14/2017.
[2017-05-14] MEDS ORDERED: Diazepam 5 MG Tab PO PRN (13:09)
[2017-05-14] MEDS: Magnesium Oxide 400 MG Tab PO SCH ×2 (13:40→20:31)
[2017-05-14] MEDS: Cyclobenzaprine 10 MG Tab PO SCH ×2 (13:40→20:32)
[2017-05-14] MEDS: SERTRALINE 50 MG PO SCH (20:33)
--- NOTE | 2017-05-14 23:56 | HP ---
REQUESTING PROVIDER FOR CONSULTATION: LUZ Wolfe. REASON FOR CONSULTATION: Elevated CK level and muscle pain. HISTORY OF PRESENT ILLNESS: This is a 56-year-old female who tells me she has really felt unwell since about 04/26. She slipped on the ice but did not fall, but almost noticed a tightening in her leg. Around that time, she also had a cold. She just took Motrin for her symptoms. She was having body aches, neck and back pain, but does not really remember a fever, but did have chills. She states she got to the point she could hardly even lift her arms and she was having discomfort in her proximal thighs. She went to the chiropractor on 05/10 and there was no relief. She did try about a half dose of one of her 's older muscle relaxants, maybe a Flexeril. She felt that might have helped a little. Then, she came to the emergency room late on the evening of 05/12 and had a CK level of 8000. Her potassium was 2.9. She had been on hydrochlorothiazide for blood pressure. She had stopped it after running out in January, but then was taking it consistently since February along with her Zoloft. She was admitted. She was given IV fluids and IV potassium and oral replacements. Potassium was normalized. Her thighs may be felt a little better, but her arms are still quite sore. She has received some Toradol and some Ativan last night to help with sleep, but no narcotics. No muscle relaxers. She was lightheaded and nauseated. She states the lightheadedness has improved, but she still feels a little nauseated. She did have some mouth sores or bumps on her tongues about 1 to 2 weeks ago, but no rash. She is a smoker, but has not really smoked in the last 2 weeks. The patient is not using alcohol. She denies any past significant alcohol use. She denies any drug use. PAST MEDICAL HISTORY: Really only significant for the anxiety and depression on Zoloft, smoking, essential hypertension really diagnosed in the last year, but has not had any lab work in the clinic since 2016, and at that time, her potassium was normal. ALLERGIES: None. MEDICATIONS: Hydrochlorothiazide 25 mg daily, Zoloft 50 mg daily. SOCIAL HISTORY: She is . Her is disabled. She has been caring for him for the last 2 years. She also cares for a 2-year-old grandchild. She smokes intermittently. Again, no drinking. She denies any past history of alcohol abuse. Denies drug use. FAMILY HISTORY: Her mother is living. She has history of breast cancer, high blood pressure, and thyroid disease. Father is from a bone cancer. She has 4 sisters that all have thyroid disease. Paternal grandmother did have rheumatoid arthritis. REVIEW OF SYSTEMS: General: There has been no reported weight gains or weight losses. HEENT: No sore throat. Cardiac: No chest pain. No palpitations, but did have PVCs on telemetry. Did improve after IV fluid replacement per the nurse. Respiratory: No cough. Currently, her cold symptoms have resolved. Abdominal: Currently, no vomiting. No abdominal pain, constipation or diarrhea. Musculoskeletal: She has muscle aches, but no joint pain or joint swelling. Neurologic: She is not having any numbness or tingling. LABORATORY DATA: Today shows her influenza testing to have been negative. Potassium is improved up to 4.6, sodium 138, chloride 108, bicarb 25, BUN 9, creatinine 0.4, calcium 7.7, AST down from 418 to 232, ALT 196 to 122, alkaline phosphatase 92. Her GGT was normal, so ALT AST is coming from the muscles. LDH 460. CK down to 3709. Initially, her troponin was negative. It was not repeated. Albumin 3.1. It should be noted hemoglobin is 15.3 on admission, down to 12.4. This is likely related to her being severely dehydrated. White count 5.2 yesterday, platelets 216. INR was 1. Her TSH was 1.4 normal. Her ESR was 23. UA did show just trace leukocyte esterase, no rbc's, no wbc's. No occult blood on the dipstick, no nitrite. Alcohol level was less than 3 on admission. ASSESSMENT AND PLAN: 1. Rhabdomyolysis. Presumably could have been induced by the hypokalemia. Other infections like a possible influenza a few weeks ago could have contributed. At this point, even though her potassium is improving, she is still having muscle pain. In certain case studies, it has taken over a week for the muscle pain to resolve, so the fact that she has already had some improvement in her legs is good. At this point, I would continue with electrolyte monitoring. We will repeat a CK tomorrow. We have stopped potassium replacement. I will start her on some magnesium 400 b.i.d. I will also start her on some Flexeril muscle relaxants to help with pain, Valium at night as needed, and continue some Toradol as needed for pain and just see how she does over the next day or 2. As long as the CK continues to trend down, I think she will be able to be safely discharged. Otherwise, lab work has already been sent off for specialized testing including an aldolase, MALENA, hepatitis panel, another inflammation marker, myoglobin in the urine. We will consider specialty referral or muscle biopsy if indicated based on other workup. 2. Essential hypertension, currently under control off her hydrochlorothiazide. If needed, I will probably start her on lisinopril on discharge, then she will need some followup in the clinic. 3. Chronic depression and anxiety, seems to be stable on the Zoloft. We will continue with the same. 4. Smoking. She was encouraged to quit. PLAN: At this point, the patient will continue admission but will be now on acute cares. I will expect another 1 to 2 nights stay for ongoing monitoring of CK levels and hopefully getting more improvement in her pain. We will get her up and working with physical therapy. Because of the PVCs this morning, we will keep her on telemetry for another 24 hours. DVT prophylaxis will be with Lovenox. We will initiate just 30 mg today, but upgrade tomorrow based on her lab monitoring. She had hypomagnesemia, also was replaced IV. I think oral replacement will also help her muscle aches. She is encouraged to find a primary care provider and follow up on discharge. MKA: 05/14/2017 18:06:59 MODL: 05/14/2017 23:48:57 /[id number]
[2017-05-15] MEDS: Cyclobenzaprine 10 MG Tab PO SCH ×3 (07:53→20:23)
[2017-05-15] MEDS: Nicotine 21 MG/24 Hr Patch TRDERM SCH (07:54)
[2017-05-15] MEDS: Magnesium Oxide 400 MG Tab PO SCH ×2 (07:55→20:20)
[2017-05-15] MEDS: Aspirin 81 MG Tab.EC PO SCH (07:55)
[2017-05-15 08:01] LABS: CHLORIDE,CL 104 mmol/L (98-107); SODIUM,NA 137 mmol/L (136-145)
[2017-05-15] MEDS ORDERED: Diazepam 5 MG Tab PO PRN (08:50)
[2017-05-15] MEDS: Enoxaparin 40 MG/0.4 ML Syringe SUBCUT SCH (09:05)
--- NOTE | 2017-05-15 09:34 | PN ---
Progress Note for FELIPA QUEZADA Date: 05/15/2017 Room #: VM.204 SUBJECTIVE: This is hospital day #3 and acute day #2 for a 56-year-old with rhabdomyolysis. Initially felt to be due to hypokalemia; however, her CK went back up today despite decreasing over the previous day's. She had completed her IV fluids yesterday. She has been eating and drinking okay. She has been up moving around some in the hallway. She was started on Flexeril 5 mg t.i.d. yesterday and it seems to help her pain, brought her levels down from an 8 to a 6 this morning. Otherwise, at times, she says it is unbearable. Valium at bedtime did help, but then she woke up during the night and it took her an hour to get back to sleep. She has not used any Toradol. Renal function has been normal. Her urine did not have any blood. She had liver enzymes that were trending down. She is having bowel movements. She is not having any shortness of breath. Influenza testing had been negative. She had multiple tests sent off yesterday for rheumatologic conditions. Nothing has returned yet. OBJECTIVE: Vital Signs: Her temperature is 96.9, pulse 78, blood pressure 134/85, respiratory rate 18, O2 98% on room air. General: She is in no acute distress. Heart: Regular rate and rhythm. S1, S2 without murmur. Respiratory: Lung sounds are clear to auscultation bilaterally without crackles or wheezes. Abdomen: Has positive bowel sounds. Soft and nontender. Extremities: Warm and dry. No edema. Mental Status: Alert and oriented x3. LABORATORY DATA: Lab work does show her white count normal at 5.1, hemoglobin 13.2, platelets 227. Sodium 137, potassium 4.6, chloride 104, bicarb 29, BUN 10, creatinine 0.5, calcium 8.1. CK went up from 3709 to 5013. ASSESSMENT: 1. Rhabdomyolysis, working diagnosis is this was hypokalemia-induced. Other viruses are a consideration as discussed with the patient. Rheumatologic workup including MALENA is pending. ESR remains normal. We will check a UA today. Restart IV fluids if there is evidence of blood in the urine. Urine myoglobin is already pending. 2. Essential hypertension, controlled, off hydrochlorothiazide. We will continue to monitor. 3. Hypokalemia, presumably induced by the hydrochlorothiazide. This has resolved after replacement. We will continue to monitor. 4. Chronic depression and anxiety. She is on her home doses of Zoloft. 5. Smoking. She is on a nicotine patch. She is encouraged to quit. 6. Muscle pain due to rhabdomyolysis. We will change her Valium to q.4 hours p.r.n. to allow for better pain coverage. We discussed how increasing the Flexeril may increase side effects like constipation and dry mouth. The patient understood. PLAN: At this point, she will continue acute care. She will continue Lovenox 40 mg daily. We will repeat lab work tomorrow. We have discontinued her telemetry. She had no further events. We will restart IV fluids if needed. [employer] will work with her regarding her lack of insurance. The patient is worried about that. MKA: 05/15/2017 08:55:43 MODL: 05/15/2017 09:14:25 /[id number]
[2017-05-15] MEDS ORDERED: Enoxaparin 30 MG/0.3 ML Syringe SUBCUT SCH (13:30)
[2017-05-15] MEDS: Ketorolac 10 MG Tab PO PRN (16:51)
[2017-05-15] MEDS: SERTRALINE 50 MG PO SCH (20:22)
[2017-05-16 07:51] LABS: CHLORIDE,CL 104 mmol/L (98-107); SODIUM,NA 138 mmol/L (136-145)
[2017-05-16] MEDS: Nicotine 21 MG/24 Hr Patch TRDERM SCH (08:48)
[2017-05-16] MEDS: Enoxaparin 40 MG/0.4 ML Syringe SUBCUT SCH (08:48)
[2017-05-16] MEDS: Cyclobenzaprine 10 MG Tab PO SCH (08:49)
[2017-05-16] MEDS: Aspirin 81 MG Tab.EC PO SCH (08:49)
[2017-05-16] MEDS: Magnesium Oxide 400 MG Tab PO SCH (08:49)
[2017-05-16] MEDS: Ketorolac 10 MG Tab PO PRN (08:50)
== END 2017-05-16 10:40 | disposition home or self-care (01) | DRG 558 ==
LOC: VM.ED 23:23 → VM.MS 05-13 00:55 → OBSVTOIN 05-14 12:19
PROVIDERS: ADMIT Nurse Practitioner Family; ATTEND Internal Medicine
DX: M62.82 Rhabdomyolysis (principal); E87.6 Hypokalemia; R53.1 Weakness; E86.0 Dehydration; R74.8 Abnormal levels of other serum enzymes; M79.1 Myalgia; I10 Essential (primary) hypertension; F41.8 Other specified anxiety disorders; F17.210 Nicotine dependence, cigarettes, uncomplicated; F10.10 Alcohol abuse, uncomplicated; Z79.899 Other long term (current) drug therapy
CPT/HCPCS: 36415; 71046; 76705; 80048; 80053; 80074; 80305; 80337; 80369; 81001; 82085; 82248; 82550; 82977; 83615; 83735; 83874; 84443; 84484; 84550; 85025; 85610; 85652; 86038; 86140; 87804; 93005; 96361; 96365; 96366; 96374; 96375; 96376; 97161-GP; 99285; A9270-GY; G0378; G0480; J1650; J1885; J2060; J2405; J3475; J3480; J7030; J7050; J7120

== ENCOUNTER 2024-04-03 06:58 | Day surgery (SDC) | payer MEDICAID ==
[2024-04-03] MEDS: Lactated Ringers 1,000 ML IV SCH (07:20)
[2024-04-03] MEDS ORDERED: Propofol 200 MG/20 ML SDV ONE (07:30)
[2024-04-03] MEDS ORDERED: fentaNYL 100 MCG/2 ML SDV ONE (07:30)
[2024-04-03] MEDS: Midazolam 1 MG/ML 2 ML SDV IVPUSH PRN (08:18)
== END 2024-04-03 10:39 | disposition home or self-care (01) ==
LOC: VM.SDS 06:58
PROVIDERS: ATTEND Student in an Organized Health Care Education/Training Program
DX: Z12.11 Encounter for screening for malignant neoplasm of colon (principal); R19.5 Other fecal abnormalities; D12.2 Benign neoplasm of ascending colon; D12.3 Benign neoplasm of transverse colon; D12.8 Benign neoplasm of rectum; I10 Essential (primary) hypertension; F41.1 Generalized anxiety disorder; F33.1 Major depressive disorder, recurrent, moderate
CPT/HCPCS: 00811; J2250; J2704; J3010; J7120